=== PATIENT | male | born 2000 | race Hispanic/Latino ===

== ENCOUNTER 2022-02-28 18:08 | Emergency (ER) | payer SELFPAY ==
[2022-02-28] MEDS ORDERED: Lidocaine Viscous Sol 2% 15 ml UD Cup ONE (18:40)
[2022-02-28] MEDS ORDERED: Ketorolac Tromethamine 30 MG/ML VIAL ONE (18:40)
== END 2022-02-28 20:08 | disposition home or self-care (01) ==
LOC: ERS 18:08
DX: H60.503 Unspecified acute noninfective otitis externa, bilateral (principal); H61.23 Impacted cerumen, bilateral
CPT/HCPCS: 69210; 96372; J1885